=== PATIENT | male | born 1960 | race Caucasian/White ===

== ENCOUNTER 2021-03-25 17:31 | Emergency (ER) | payer OTHER, SELFPAY ==
[2021-03-25 17:34] VITALS: BP 154/88; PULSE 81; RESP 15; TEMP 36.7; O2SAT 97; BMI 24.9
[2021-03-25 17:41] VITALS: BP 154/88; PULSE 80; RESP 22; TEMP 36.7; O2SAT 97
--- NOTE | 2021-03-25 19:19 | ED.VIS.GI ---
HPI HPI - GI History of Present Illness Chief Complaint: Foreign Body Narrative Narrative: Patient presenting with esophageal foreign body sensation. He states he was eating dinner and choked on a piece of steak. A bystander did the Heimlich on him and he was able to catch his breath. He states that after that he tried to drink some water at the dinner table and vomited this up. He tried to get in the car and was having trouble swallowing fluids in the car. When he arrived to the ED he states he drank some water and then had a bunch of mucus that he spit up into the sink. Since that time he said no trouble swallowing his secretions. He denies any chest pain or shortness of breath. Patient states he is had this problem in the past when eating steak. He has [facility]. [facility] Medical History Biceps tendon tear COPD (chronic obstructive pulmonary disease) History of colon polyps History of solitary pulmonary nodule Home Medications testosterone cypionate 03/25/21 [History Last Taken Unknown] Allergy/AdvReac Type Severity Reaction Status Date / Time No Known Allergies Allergy Verified 03/25/21 17:32 Surgical History History of knee surgery History of repair of rotator cuff Social History Smoking Status: Never smoker ROS [facility] ED Constitutional Constitutional ED: Denies chills or fever(s) ENT ENT ED: Denies rhinorrhea or sore throat Cardiovascular Cardiovascular: Denies chest pain or palpitations Respiratory/Chest Respiratory/Chest: Denies cough or dyspnea Gastrointestinal Gastrointestinal: Reports vomiting; Denies abdominal pain or nausea Genitourinary Genitourinary ED: Denies dysuria or hematuria Musculoskeletal Musculoskeletal: Denies arthralgias or myalgias Integumentary Denies Abrasions or rash Neurologic Neurologic: Denies headache(s) or paresthesias EXAM Physical Exam Const Vital Signs: 03/25/21 17:34 03/25/21 17:41 03/25/21 17:44 Temperature 98.1 F 98.1 F Temperature Source Temporal Temporal Pulse Rate 81 80 Respiratory Rate 15 22 H Respiratory Effort Normal Respiratory Pattern Normal Blood Pressure 154/88 H 154/88 H Blood Pressure Mean 110 110 Pulse Ox 97 97 Oxygen Delivery Method Room Air Room Air 03/25/21 19:32 Temperature Temperature Source Pulse Rate Respiratory Rate Respiratory Effort Respiratory Pattern Blood Pressure 134/90 H Blood Pressure Mean 104 Pulse Ox Oxygen Delivery Method Positive well nourished HEENT Reports moist mucous membranes HEENT Narrative: No stridor. Tolerating his own secretions. Speaking in full sentences. normocephalic and atraumatic Eyes PERRL and EOMs intact bilaterally Resp normal respiratory effort and clear to auscultation bilaterally Cardio regular rate and regular rhythm Extremity full ROM General Extremety ED: Negative for edema General Extremity: Negative for edema Neuro Sensorium / Orientation: alert and oriented to person Psych mental status grossly normal Skin Rashes: no rashes MDM MDM MDM Narrative Medical decision making narrative: Patient feeling as if his symptoms have resolved. I was able to give him a glass of water and he tolerated this well. He has not had any episodes of spitting up since then. His lungs are clear to auscultation. He has no stridor on exam. I feel he safe to be discharged home at this time. He is given return precautions. Otherwise he should follow-up with the [facility] for upper and lower endoscopy. Impression: 1. Foreign body esophagus resolved 2. Choking episode resolved Discharge Plan Triage Chief Complaint: Foreign Body ED Provider: hZen Levy Dx/Rx/DC Orders Instructions: ED Esophageal Foreign Body, Resolved Prescriptions: No Action testosterone cypionate RF: 0 [facility] [Primary Care Provider] - Disposition Disposition: Home, Self Care Discharge Date/Time: 03/25/21 19:33
[2021-03-25 19:32] VITALS: BP 134/90
== END 2021-03-25 19:33 | disposition home or self-care (01) ==
PROVIDERS: Emergency Provider Student in an Organized Health Care Education/Training Program
DX: T18.128A Food in esophagus causing other injury, initial encounter (principal); X58.XXXA Exposure to other specified factors, initial encounter; Z87.19 Personal history of other diseases of the digestive system
CPT/HCPCS: 99282